=== PATIENT | male | born 1965 | race Caucasian/White ===

== ENCOUNTER 2018-02-24 07:46 | Day surgery (SDC) | payer OTHER ==
[2018-02-10 12:21] VITALS: BMI 39.5
--- NOTE | 2018-02-24 09:14 | CP.PCM.PCO ---
Physician Communication Note - Physician Communication Note Physician Communication Note: :02/24/18 at 9:10 [address] spoke with Dr[address] Jenkins the pts PCP who said he is david
[2018-02-24] MEDS ORDERED: Rocuronium 10 mg/ml (5 ml) ONE (09:21)
[2018-02-24] MEDS ORDERED: Succinylcholine 200 mg/10 ml Inj IV ONE (09:21)
[2018-02-24] MEDS ORDERED: Propofol 10 mg/ml Inj (20 ML) ONE (09:21)
[2018-02-24] MEDS ORDERED: Lidocaine 1% w Epi 1:100,000 Inj ONE (09:36)
[2018-02-24] MEDS ORDERED: Bupivacaine 0.5% 50 ML IJ ONE (09:36)
[2018-02-24] MEDS ORDERED: Midazolam 2 MG/2 ML VIAL ONE (10:04)
[2018-02-24] MEDS ORDERED: Bupivacaine 0.5% Inj(30mL) IJ ONE (11:05)
[2018-02-24] MEDS ORDERED: Glycopyrrolate 0.2 mg/ml (2ml vial) ONE (11:17)
[2018-02-24] MEDS ORDERED: Neostigmine Methylsulfate 3mg/3ml Syringe IV ONE (12:08)
[2018-02-24] MEDS ORDERED: Lactated Ringer's 1,000 ML IV SCH (13:30)
--- NOTE | 2018-02-24 13:30 | PCM.SURG1 ---
Surgeon's Initial Post Op Note - Surgeon's Notes Surgeon: Dr. Patricia Weights And Measures Sealer: Dr. Locke, [facility] [id number] Type of Anesthesia: General Endo Pre-Operative Diagnosis: Soft tissue mass on the back and scalp Operative Findings: see operative dictation note Post-Operative Diagnosis: Soft tissue mass of the back and scalp Operation Performed: Excision of soft tissue mass of back and scalp Specimen/Specimens Removed: lipoma Estimated Blood Loss: EBL {In ML}: 50 Blood Products Given: N/A Drains Used: Cl [place] Post-Op Condition: Good Date of Surgery/Procedure: 02/24/18 Time of Surgery/Procedure: 13:30
[2018-02-24] MEDS ORDERED: Oxycodone/Acetaminophen 5/325 mg Tab PO PRN (13:45)
[2018-02-24 14:44] VITALS: RESP 18; TEMP 97.7
[2018-02-24 15:00] VITALS: BP 133/72; PULSE 99; O2SAT 96
--- NOTE | 2018-03-02 03:56 | OP ---
PROCEDURE DATE: 02/24/2018 PREOPERATIVE DIAGNOSES: 1. Right scalp mass. 2. Large right upper back mass, 20 cm in size, deep intramuscular. POSTOPERATIVE DIAGNOSES: 1. Excision of right scalp mass. 2. Large right upper back mass, 20 cm in size, deep intramuscular. PROCEDURES: 1. Excision of right scalp mass. 2. Wide excision of right upper back 20 cm deep intramuscular soft tissue tumor and wound closure with rotating flaps. SURGEON: Pollo Patricia MD. TYPE OF ANESTHESIA: General endotracheal. PROCEDURE: The patient was brought into the operating room and placed on the operating table in supine position. After smooth induction of general endotracheal anesthesia,Venodyne boots were placed in both the legs and prophylactic IV antibiotics were given. The patient's position was changed to that of prone and the entire upper back and the area where the mass of the scalp lesion was in the right temporal area after shaving it, were prepped and draped in the usual sterile fashion. The skin around the scalp lesion was infiltrated with local anesthetic, which comprised of 0.5% Marcaine and 1% lidocaine with epinephrine in equal volumes. A #15 blade was used to perform an ovoid incision around this right temporal scalp mass and was brought down the subcutaneous tissue using Bovie electrocautery. Dissection continued all the way down to the galea, which was left intact. The specimen was removed and sent to pathology in appropriate labels for permanent sections. The wound was irrigated with warm normal saline, its bleeders were easily controlled with Bovie electrocautery. The wound was closed with [place] and neomycin ointment was applied. Attention was then focused on the large right upper back mass, which was approximately 20 cm in size underlying soft tissues. Approximately, a 20 cm line was drawn with a marking pen along the Demetrice lines, which was then infiltrated with local anesthetic, which comprised of 0.5% Marcaine, 1% lidocaine with epinephrine in equal volumes. The incision was brought down to subcutaneous tissue, which was ovoid shape, taking approximately a 20 x 5 cm piece of skin. Dissection continued down into deeper layers, dissecting the subcutaneous tissue all the way down to the level of the pseudocapsule of the soft tissue tumor, which was partly concealed by the latissimus dorsi and the rhomboid muscles. Dissection continued medially and laterally, dissecting this mass free from its attachments to the surrounding underling masses, named latissimus dorsi and the rhomboid muscles, ensuring that there was adequate circumferential margin preserving the pseudocapsule. Dissection continued all the way down to the paraspinal muscles and the infraspinatus muscle sacrificing only a small amount of the muscle and part of its overlying fascia. The specimen was sent to pathology in appropriate labels and oriented for permanent sections. The wound was irrigated with warm normal saline. Bleeders were easily controlled with Bovie electrocautery. Rotating flaps were created by multiple layers of the rhomboid muscle, the latissimus dorsi muscle from the underlying musculature, namely paraspinal muscles, the infraspinatus muscle, and the posterior serratus muscle and these flaps were rotated, which covered the scapula and were secured in place in a tension free fashion using an interrupted 0 Vicryl stitch. Creating these rotating flaps, the wound was easily closed in a tension free fashion. Also, we placed a #15 Ma[place]dra in the depths of this wound, overlying the newly constructed rotating flaps of the muscles and securing to the skin with a 2-0 silk stitch. Finally, the wound was closed in two layers using interrupted inverted 2-0 Vicryl stitch for the dermis and 3-0 nylon stitch for the skin. Sterile dressings were applied. At the end of the surgery, the count of the instruments, gauze, and needle was correct x2. The patient tolerated the surgery well and was transferred in stable condition to recovery room. Pollo Patricia MD
== END 2018-02-24 17:30 | disposition home or self-care (01) ==
LOC: SDS 07:46
PROVIDERS: ATTEND Specialist
DX: D17.9 Benign lipomatous neoplasm, unspecified (principal); D17.0 Benign lipomatous neoplasm of skin and subcutaneous tissue of head, face and neck; I10 Essential (primary) hypertension
CPT/HCPCS: 11423; 21933; 88304; 88305; J0131; J0330; J0690; J2001; J2250; J2405; J2704; J2710; J2765; J3010; J7120 ×2